=== PATIENT | male | born 1995 | race Caucasian/White ===

== ENCOUNTER → 2017-03-08 | Outpatient (CLI) | payer MEDICAID ==
--- NOTE | 2017-03-11 11:20 | [facility] ---
[facility] NAME: MINERVA PITT [facility] REFERENCE #: [id number] : 1995 DATE OF VISIT: 03/08/2017 PRIMARY CARE: Jenna Fortune M.D. CHIEF COMPLAINT: Dizziness, chest pain, and orthostatic intolerance. HISTORY: This young man is seen with his mother at [facility]. I have him on atenolol 50 mg each morning for symptoms of orthostatic intolerance with chest pain, sense of tachycardia, and dizziness. He says he does great when he is on the medication, but when he is off of it, he has his symptoms return of headaches, dizziness, and chest pains. He has perfect control when he is on it. He has been off it for a couple of weeks when his prescription ran out and he wants to restart it again. On his medication, he has great energy, he has not fainted. He feels good. He also takes Adderall and he is on Provigil for his attention deficit. In the past, I thought he had a top-normal aortic root size of 3.1 cm. He is a very large man and actually this dimension is within the normal limits for his body size. That cardiac dimension of the aortic root of 3.1 cm has been stable on an echo of 2013 and an echo of 2016. He does not have mitral valve prolapse. MEDICATIONS: See HPI. ALLERGIES TO MEDICATION: None. SOCIAL HISTORY: Lives with mom and three dogs. PAST MEDICAL HISTORY: Diagnosis of mild autism. He had respiratory problems as a toddler, but none now. REVIEW OF SYSTEMS: Systems review positive for mild constipation. He has poppy shoulders, but otherwise no joint problems. Wears glasses for myopia. Has very rare shortness of breath when running. He has not had abnormal weight change, swollen glands, fevers, urinary complaints, musculoskeletal pains. He does have headaches now, but not when he was on medication. FAMILY HISTORY: Dad's brother has a marfanoid appearance and the sons of this man, who are first cousins of the patient are said to have Marfan syndrome. The patient's mother height is 5 feet 6 inches. The patient's father's height is 6 feet 1 inch. The family history is negative for young heart disease, but there are the cousins with Marfan. PHYSICAL EXAMINATION: Weight 212 pounds, height 71 inches, blood pressure 122/58, heart rate 74. General exam is a tall, large, large framed and very polite young man. His color and perfusion are good. Dentition appears satisfactory. Thyroid not enlarged or nodular. On oral exam, he has a normal palate. He has a normal uvula. His facial structure does not appear marfanoid. The precordial activity is normal. The breast bone and sternum do not show any deformity of Marfan. Cardiac auscultation reveals no abnormal murmur, click, or gallop. Abdomen is without hepatomegaly, splenomegaly, mass or bruit. Gait and coordination are normal. Extremities: He does not have arms or hands that appear marfanoid. He has no important scoliosis. IMPRESSION: I SEE NO REASON TO REPEAT HIS ECHO TODAY. WE WILL KEEP HIM IN FOLLOWUP BECAUSE HE IS ON THE ATENOLOL. WE MAY CONSIDER ANOTHER ECHO IN A YEAR OR SO. HOWEVER, I DO NOT THINK THAT HE HAS MARFAN SYNDROME AND I THINK THAT HIS AORTIC ROOT IS NORMAL FOR HIS BODY SIZE. HE DOES NOT HAVE MITRAL VALVE PROLAPSE. HE HAS HAD NORMAL CARDIAC FUNCTION. HIS SYMPTOMS ARE CLASSIC FOR ORTHOSTATIC INTOLERANCE WITH POSTURAL LIGHTHEADEDNESS, VASCULAR HEADACHES, AND OCCASIONAL SPELLS OF CHEST PAIN. THEY ARE PERFECTLY CONTROLLED ON ATENOLOL. PRESCRIPTION WAS DONE FOR 1 YEAR OF 50 MG ATENOLOL EACH DAY AND THEY WILL CALL WITH ANY SYMPTOMS TO REPORT WHATSOEVER. NO EXERCISE RESTRICTIONS ARE NEEDED. MARTA CHERRY MD [id number] PHY#: [id number] ID: [id number] JOB#: [id number] ACCT: [id number] cc:MD JENNA LEO M.D. >
== END ==
LOC: PC 08:52
PROVIDERS: ATTEND Pediatrics Pediatric Cardiology
DX: I95.1 Orthostatic hypotension (principal)